=== PATIENT | female | born 1960 | race Caucasian/White ===

== ENCOUNTER 2019-01-28 08:26 | Day surgery (SDC) | payer OTHER ==
[2019-01-27 13:55] VITALS: BMI 31.0
[2019-01-28] MEDS ORDERED: MIDAZOLAM HCL 2 MG/2 ML SINGLE DOSE VIAL ONE (11:44)
[2019-01-28] MEDS ORDERED: LIDOCAINE HCL 1%, 10 MG/ML (20ML VIAL) NR ONE (11:45)
[2019-01-28] MEDS ORDERED: IOHEXOL 180 MG/1 ML ML IJ ONE (11:45)
[2019-01-28] MEDS ORDERED: BETAMET ACET/BETAMET NA PH 30 MG/5 ML VIAL IJ ONE (11:46)
[2019-01-28] MEDS ORDERED: DEXAMETHASONE SOD PHOSPHATE/PF 10 MG/ML SDV ONE (11:48)
[2019-01-28 13:16] VITALS: BP 126/72; PULSE 63; TEMP 98
== END 2019-01-28 13:05 | disposition home or self-care (01) ==
LOC: JASU-SURG 08:26
PROVIDERS: ATTEND Physical Medicine & Rehabilitation
PROC: 3E0R33Z Introduction of Anti-inflammatory into Spinal Canal, Percutaneous Approach (ICD-10-PCS; 2019-01-28)
PROC: B01BYZZ Fluoroscopy of Spinal Cord using Other Contrast (ICD-10-PCS; 2019-01-28)
PROC: 3E0R3BZ Introduction of Anesthetic Agent into Spinal Canal, Percutaneous Approach (ICD-10-PCS; principal; 2019-01-28 11:00)
DX: M54.12 Radiculopathy, cervical region (principal); M54.2 Cervicalgia
CPT/HCPCS: 76000-TC-FY

== ENCOUNTER 2019-04-16 02:58 | Inpatient (IN) | payer OTHER ==
[2019-04-16] MEDS ORDERED: ACETAMINOPHEN 1000 MG/100 ML VIAL (NON FORMULARY) IVPB ONE (03:13)
--- NOTE | 2019-04-16 03:16 | PDOC ---
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 Pt comes with fever, exhaustion, sob and general malaise and appears weak. - Physicial Exam PE: 04/16/19 19:52 Comments: General: Comfortable, no acute distress HEENT: PERRL, EOMI, MMM, voice normal, normal neck ROM Cards: RRR, no murmur appreciated Pulm: Comfortable on room air, dry cough. No obvious wheezing or crackles but breath sounds obscured by persistent vocalizations. Abd: Soft, nontender, nondistended Ext: Atraumatic. No LE edema. ROM intact. WWP Skin: Normal color, no rashes or lesions Neuro: A&Ox3, CN grossly intact, normal speech, motor/sensory grossly intact and symmetric Psych: Mood appropriate to situation - Medical Decision Making 04/16/19 03:58 Pt is influenza negative; CXR is pending UA pending 04/16/19 06:45 Pt with atypical pneumonia; desaturates off of oxygen; 92-94% on RA. Pt becaomes tachycardic to 115 BPM when she ambulates down the ER nieves and back.Pt was treated earlier with zithromax in the ER; I treated with lcinda IVPB , because i thought that she would be strep positive; unclear if the initial dose of zithromax IV ruined the rapid strep test causing a false negative result. Pt complains of sore throat, odynophagia.
[2019-04-16] MEDS ORDERED: ACETAMINOPHEN INJECTION 100 ML IVPB ONE (03:27)
[2019-04-16] MEDS ORDERED: AZITHROMYCIN IVPB 500 MG in DEXTROSE 5%-WATER - 250 ML IVPB ONE ×2 (03:30→06:43)
--- NOTE | 2019-04-16 03:41 | PDOC ---
History of Present Illness - General Chief Complaint: SIRS, Suspected/Possible Stated Complaint: FEVER,COUGH Time Seen by Provider: 04/16/19 03:15 - History of Present Illness Initial Comments: Michelle Ace is a 59yo woman with a PMH of hypothyroid, left breast CA s/p surgery and radiation who presents with one week of worsening cough and difficulty breathing. She reports that her cough started during the middle of last week, about 9 or 10 days ago, and she took several days off work. During the past week, she has been using Musinex and Tylenol for her symptoms. Today, she felt significantly worse and was having difficulty breathing. Her noted that she felt very warm this evening and decided that she needed to come to the hospital. Ms Krueger denies any fevers prior to tonight, change in appetite, nausea/ vomiting, change in bowel habits, known sick contacts, or history of lung disease. She endorses dysuria recently but was given antibiotics by her PMD one month ago. Past History - Past Medical History Allergies/Adverse Reactions: Allergies Allergy/AdvReac Type Severity Reaction Status Date / Time No Known Allergies Allergy Verified 04/16/19 03:10 Home Medications: Ambulatory Orders Levothyroxine [Synthroid -] 50 mcg PO DAILY 01/27/19 Cancer: Yes (breast) Thyroid Disease: Yes - Surgical History Orthopedic Surgery: Yes (left hand,) - Psycho Social/Smoking Cessation Hx Smoking History: Never smoked Have you smoked in the past 12 months: No Information on smoking cessation initiated: No Hx Alcohol Use: No Drug/Substance Use Hx: No Hx Substance Use Treatment: No Review of Systems - Review of Systems Comments:: General: No fevers, no chills, no weight or appetite change, no malaise HEENT: No changes in vision, no changes in hearing, no congestion, no sore throat CV: No chest pain, no palpitations, no LE edema Pulm: See HPI GI: No nausea or vomiting, no change in bowel habits, no melena : No frequency, no urgency, no dysuria Musc: No back pain, no joint swelling, no recent injury Skin: No rash, no lesions, no erythema Endo: No excessive thirst, no heat/cold intolerance Heme: No unusual bruising or bleeding, no swollen glands Neuro: No syncope, no numbness/tingling, no focal weakness Vasc: No claudication Psych: No recent change in mood, no SI or HI *Physical Exam - Vital Signs Last Vital Signs Temp Pulse Resp BP Pulse Ox 101.2 F H 120 H 20 116/85 95 04/16/19 03:12 04/16/19 03:12 04/16/19 03:12 04/16/19 03:12 04/16/19 03:33 - Physical Exam Comments: General: Comfortable, no acute distress HEENT: PERRL, EOMI, MMM, voice normal, normal neck ROM Cards: RRR, no murmur appreciated Pulm: Comfortable on room air, dry cough. No obvious wheezing or crackles but breath sounds obscured by persistent vocalizations. Abd: Soft, nontender, nondistended Ext: Atraumatic. No LE edema. ROM intact. WWP Skin: Normal color, no rashes or lesions Neuro: A&Ox3, CN grossly intact, normal speech, motor/sensory grossly intact and symmetric Psych: Mood appropriate to situation ED Treatment Course - LABORATORY CBC & Chemistry Diagram: 04/16/19 03:30 04/16/19 03:30 - Medications Given in the ED: ED Medications Discontinued Medications Generic Name Dose Route Start Last Admin Trade Name Freq PRN Reason Stop Dose Admin Acetaminophen 1,000 mg 04/16/19 03:13 04/16/19 03:34 Ofirmev Injection - IVPB 04/16/19 03:14 1,000 mg ONCE ONE Administration Medical Decision Making - Medical Decision Making 04/16/19 03:41 Michelle Ace is a 59yo woman with a PMH of hypothyroid, left breast CA s/p surgery and radiation who presents with one week of worsening cough with difficulty breathing and new onset of fever today. - Worsening cough, SOB and new onset of fever after 9-10 days of respiratory symptoms. Concerning for possible pneumonia or bacterial respiratory infection given sudden worsening - Sepsis workup as pt is febrile, tachycardic, and mildly hypoxic to 94% on RA - Flu swab - Acetaminophen, IVF, azithromycin 04/16/19 05:17 - Labs notable for slight leukocytosis to 12, lactate 2.1 - UA with blood, no s/s of infection - EKG w/ sinus tachycardia, HR 108, normal axis, normal intervals, no ST elevation - CXR to be completed 10/26/19 05:43 - CXR without acute abnormalities appreciated - Will recheck vitals, ambulate and check sats with ambulation 04/16/19 06:43 - Strep checked per Dr Callejas due to pt now endorsing sore throat. Negative - Sats 97% on RA, drop to low 90's when ambulating. HR up to 115 when walking - Will send microblog for admission given hypoxia and persistent tachycardia - Duoneb and additional IVF 04/16/19 07:01 - Sign out given to Dr Arndt for the remainder of her ED care Discussed with Dr Júnior Calixto PGY2 Discharge - Discharge Information Problems reviewed: Yes Clinical Impression/Diagnosis: Hypoxemia, Cough Sepsis Qualifiers: Sepsis type: sepsis due to unspecified organism Sepsis acute organ dysfunction status: unspecified Qualified Code(s): A41.9 - Sepsis, unspecified organism - Admission Yes - Follow up/Referral Referrals: Robbie Brooks MD [Primary Care Provider] - - Patient Discharge Instructions - Post Discharge Activity
[2019-04-16] MEDS ORDERED: AZITHROMYCIN IVPB 500 MG/250 ML BAG IVPB ONE (03:44)
[2019-04-16 03:46] LABS: BASO % 0.3 % (0-2.0); EOS % 1.6 % (0-4.5); HEMOGLOBIN 14.3 GM/dL (10.7-15.3); LYMPH % 11.1 % (8-40); MCH 28.8 pg (25.7-33.7); MCHC 33.2 g/dl (32.0-36.0); MEAN CELL VOLUME 86.7 fl (80-96); MEAN PLT VOLUME 7.8 fl (7.5-11.1); MONO % 5.3 % (3.8-10.2); NEUT % 81.7 % (42.8-82.8); PLATELET COUNT 337 K/MM3 (134-434); RBC 4.95 M/mm3 (3.60-5.2); RDW 13.2 % (11.6-15.6); WHITE BLOOD COUNT 12.6 K/mm3 (4.0-10.0)
[2019-04-16] MEDS ORDERED: SODIUM CHLORIDE 0.9% 500 ML INFUS.BAG IV ONE ×2 (03:59→06:43)
[2019-04-16 04:01] LABS: INR 1.07 (0.83-1.09); PROTHROMBIN TIME (PATIENT) 12.6 SEC (9.7-13.0)
[2019-04-16 04:29] LABS: ALBUMIN 4.2 g/dl (3.4-5.0); ALK PHOS 102 U/L (45-117); ANION GAP 9 MMOL/L (8-16); BILIRUBIN,TOTAL 0.5 mg/dL (0.2-1); BLOOD UREA NITROGEN 13.4 mg/dL (7-18); CALCIUM 9.3 mg/dL (8.5-10.1); CHLORIDE 106 mmol/L (98-107); CO2 25 mmol/L (21-32); CREATININE 0.8 mg/dL (0.55-1.3); GLUCOSE,RANDOM 118 mg/dL (74-106); POTASSIUM 3.9 mmol/L (3.5-5.1); SGOT/AST 16 U/L (15-37); SGPT/ALT 12 U/L (13-61); SODIUM 139 mmol/L (136-145); TOT PROT 7.6 g/dl (6.4-8.2)
[2019-04-16 05:09] LABS: EPI CELLS 0.2 /HPF (0-5/HPF); HYALINE CASTS 0 /lpf (0-8); PH,URINE 5.5 (5.0-8.0); URINE APPEARANCE CLEAR; URINE BILIRUBIN NEGATIVE (NEGATIVE); URINE COLOR YELLOW; URINE GLUCOSE (UA) NEGATIVE (NEGATIVE); URINE KETONE NEGATIVE (NEGATIVE); URINE LEUK ESTERASE NEGATIVE (NEGATIVE); URINE NITRITE NEGATIVE (NEGATIVE); URINE PROTEIN NEGATIVE (NEGATIVE); URINE RBC 15 /hpf (0-4); URINE UROBILINOGEN 0.2 mg/dL (0.2-1.0); URINE WBC 0 /hpf (0-5)
[2019-04-16] MEDS ORDERED: CLINDAMYCIN 600MG PREMIX IVPB 600 MG/50 ML BAG IVPB ONE ×2 (06:09→06:11)
[2019-04-16] MEDS ORDERED: ALBUTEROL SO4 2.5/IPRATROPIUM 0.5 INH SOL 3 ML VIAL.NEB. NEB ONE ×2 (06:42→06:44)
--- NOTE | 2019-04-16 07:47 | PDOC ---
*Physical Exam - Vital Signs Last Vital Signs Temp Pulse Resp BP Pulse Ox 98.4 F 90 20 108/62 96 04/16/19 05:30 04/16/19 05:11 04/16/19 05:11 04/16/19 05:42 04/16/19 06:10 ED Treatment Course - LABORATORY CBC & Chemistry Diagram: 04/16/19 03:30 04/16/19 03:30 - ADDITIONAL ORDERS Additional order review: Laboratory Results 04/16/19 04/16/19 04/16/19 05:35 04:30 03:30 PT with INR 12.60 INR 1.07 PTT (Actin FS) Sodium Potassium Chloride Carbon Dioxide Anion Gap BUN Creatinine Est GFR (CKD-EPI)AfAm Est GFR (CKD-EPI)NonAf Random Glucose Lactic Acid 1.8 Calcium Total Bilirubin AST ALT Alkaline Phosphatase Troponin I Total Protein Albumin Urine Color Yellow Urine Appearance Clear Urine pH 5.5 Ur Specific [place] 1.012 Urine Protein Negative Urine Glucose (UA) Negative Urine Ketones Negative Urine Blood 2+ H Urine Nitrite Negative Urine Bilirubin Negative Urine Urobilinogen 0.2 Ur Leukocyte Esterase Negative Urine WBC (Auto) 0 Urine RBC (Auto) 15 Urine Casts (Auto) 0 U Epithel Cells (Auto) 0.2 Urine Bacteria (Auto) 1.0 04/16/19 04/16/19 04/16/19 03:30 03:30 03:30 PT with INR INR PTT (Actin FS) 36.5 Sodium 139 Potassium 3.9 Chloride 106 Carbon Dioxide 25 Anion Gap 9 BUN 13.4 Creatinine 0.8 Est GFR (CKD-EPI)AfAm 92.87 Est GFR (CKD-EPI)NonAf 80.13 Random Glucose 118 H Lactic Acid 2.1 H Calcium 9.3 Total Bilirubin 0.5 AST 16 ALT 12 L Alkaline Phosphatase 102 Troponin I < 0.02 Total Protein 7.6 Albumin 4.2 Urine Color Urine Appearance Urine pH Ur Specific [place] Urine Protein Urine Glucose (UA) Urine Ketones Urine Blood Urine Nitrite Urine Bilirubin Urine Urobilinogen Ur Leukocyte Esterase Urine WBC (Auto) Urine RBC (Auto) Urine Casts (Auto) U Epithel Cells (Auto) Urine Bacteria (Auto) 04/16/19 03:30 PT with INR INR PTT (Actin FS) Sodium Potassium Chloride Carbon Dioxide Anion Gap BUN Creatinine Est GFR (CKD-EPI)AfAm Est GFR (CKD-EPI)NonAf Random Glucose Lactic Acid Calcium Total Bilirubin AST ALT Alkaline Phosphatase Troponin I Cancelled Total Protein Albumin Urine Color Urine Appearance Urine pH Ur Specific [place] Urine Protein Urine Glucose (UA) Urine Ketones Urine Blood Urine Nitrite Urine Bilirubin Urine Urobilinogen Ur Leukocyte Esterase Urine WBC (Auto) Urine RBC (Auto) Urine Casts (Auto) U Epithel Cells (Auto) Urine Bacteria (Auto) 04/16/19 03:30 RBC 4.95 MCV 86.7 MCHC 33.2 RDW 13.2 MPV 7.8 Neutrophils % 81.7 Lymphocytes % 11.1 Monocytes % 5.3 Eosinophils % 1.6 Basophils % 0.3 - Medications Given in the ED: ED Medications Discontinued Medications Generic Name Dose Route Start Last Admin Trade Name Freq PRN Reason Stop Dose Admin Acetaminophen 1,000 mg 04/16/19 03:13 04/16/19 03:34 Ofirmev Injection - IVPB 04/16/19 03:14 1,000 mg ONCE ONE Administration Albuterol/Ipratropium 1 amp 04/16/19 06:42 04/16/19 06:49 Duoneb - NEB 04/16/19 06:43 1 amp ONCE ONE Administration Azithromycin 500 mg/ Dextrose 250 mls @ 250 mls/hr 04/16/19 03:30 04/16/19 03 :50 IVPB 04/16/19 04:29 250 mls/hr ONCE ONE Administration Clindamycin Phosphate 600 mg in 50 mls @ 100 mls/hr 04/16/19 06:09 04/16/19 06:14 Cleocin 600 Mg Premix Ivpb - IVPB 04/16/19 06:38 100 mls/hr ONCE ONE Administration Azithromycin 500 mg/ Dextrose 250 mls @ 250 mls/hr 04/16/19 06:43 04/16/19 06 :49 IVPB 04/16/19 07:42 Not Given ONCE ONE Sodium Chloride 1,000 ml 04/16/19 03:59 04/16/19 04:04 Normal Saline - IV 04/16/19 04:00 1,000 ml ONCE ONE Administration Sodium Chloride 1,000 ml 04/16/19 06:43 04/16/19 06:50 Normal Saline - IV 04/16/19 06:44 1,000 ml ONCE ONE Administration Medical Decision Making - Medical Decision Making 04/16/19 07:46 Patient signed out by overnight team Pending admission for sepsis criteria On assessment the patient has crackles at the bases Patient signed out to admitting team resident Dr. Chance Discharge - Discharge Information Problems reviewed: Yes Clinical Impression/Diagnosis: Hypoxemia, Cough Sepsis Qualifiers: Sepsis type: sepsis due to unspecified organism Sepsis acute organ dysfunction status: unspecified Qualified Code(s): A41.9 - Sepsis, unspecified organism - Follow up/Referral Referrals: Robbie Brooks MD [Primary Care Provider] - - Patient Discharge Instructions - Post Discharge Activity
[2019-04-16 09:10] LABS: N-TERMINAL BNP 27.5 pg/ml (5-125)
[2019-04-16] MEDS ORDERED: ALBUTEROL SO4 0.083% IH SOL 2.5 MG/3 ML VIAL.NEB. NEB PRN (09:23)
[2019-04-16] MEDS ORDERED: SODIUM CHLORIDE 1,000 ML IV SCH (09:30)
--- NOTE | 2019-04-16 11:30 | HP ---
CHIEF COMPLAINT:fever and cough PCP:Dr. Robbie Brooks HISTORY OF PRESENT ILLNESS: Patient is a 59 year old female with past medical history of hypothyroidism and left breast CA s/p surgery and radiation, presented due to worsening nasal congestion, cough with difficulty breathing that started 10 days ago. Patient reported initially having flu-like symptoms including headache, generalized malaise, nasal congestion, sore throat and nonproductive cough. Patient would take Nyquil which provided temporary relief. 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 Patient came to the ED due to worsening symptoms, with difficulty breathing. At the ED, she was noted to be febrile at 101.2F, tachycardic with leukocytosis, and saturating at the low 90s. She was given IV antibiotics and duonebs which provided symptomatic relief. This morning, patient reports feeling better, but still has nasal congestion, sore throat and cough. Patient denies chest pain, palpitations, abdominal pain, diarrhea, urinary symptoms. ER course was notable for: (1)Clindamycin and Azithromycin given (2)Influenza negative, Strep negative (3) Recent Travel:denies PAST MEDICAL HISTORY: Hypothyroidism Left breast CA s/p surgery and radiation PAST SURGICAL HISTORY: Lumpectomy, left breast Social History: Smoking: denies Alcohol:denies Drugs: denies Allergies No Known Allergies Allergy (Verified 04/16/19 03:10) HOME MEDICATIONS: Home Medications Medication Instructions Recorded Levothyroxine [Synthroid -] 50 mcg PO DAILY 01/27/19 Acetaminophen [Tylenol] 650 mg PO DAILY PRN 04/16/19 Ascorbic Acid [Vitamin C] 1,000 mg PO DAILY 04/16/19 Cholecalciferol (Vitamin D3) 50,000 unit PO DAILY 04/16/19 [D3-50] Cyclobenzaprine HCl [Flexeril -] 5 mg PO HS 04/16/19 Gabapentin [Neurontin] 750 mg PO PRN 04/16/19 Omeprazole 40 mg PO DAILY 04/16/19 REVIEW OF SYSTEMS CONSTITUTIONAL: Absent: fever, chills, diaphoresis, generalized weakness, malaise, loss of appetite, weight change HEENT: Absent: rhinorrhea, nasal congestion, throat pain, throat swelling, difficulty swallowing, mouth swelling, ear pain, eye pain, visual changes CARDIOVASCULAR: Absent: chest pain, syncope, palpitations, irregular heart rate, lightheadedness , peripheral edema RESPIRATORY: Absent: cough, shortness of breath, dyspnea with exertion, orthopnea, wheezing, stridor, hemoptysis GASTROINTESTINAL: Absent: abdominal pain, abdominal distension, nausea, vomiting, diarrhea, constipation, melena, hematochezia GENITOURINARY: Absent: dysuria, frequency, urgency, hesitancy, hematuria, flank pain, genital pain MUSCULOSKELETAL: Absent: myalgia, arthralgia, joint swelling, back pain, neck pain SKIN: Absent: rash, itching, pallor HEMATOLOGIC/IMMUNOLOGIC: Absent: easy bleeding, easy bruising, lymphadenopathy, frequent infections ENDOCRINE: Absent: unexplained weight gain, unexplained weight loss, heat intolerance, cold intolerance NEUROLOGIC: Absent: headache, focal weakness or paresthesias, dizziness, unsteady gait, seizure, mental status changes, bladder or bowel incontinence PSYCHIATRIC: Absent: anxiety, depression, suicidal or homicidal ideation, hallucinations. PHYSICAL EXAMINATION Vital Signs - 24 hr 04/16/19 04/16/19 04/16/19 03:12 03:33 04:09 Temperature 101.2 F H Pulse Rate 120 H Pulse Rate [ 100 H Left Radial] Respiratory 20 Rate Blood Pressure 116/85 Blood Pressure [Left Arm] O2 Sat by Pulse 94 L 95 99 Oximetry (%) 04/16/19 04/16/19 04/16/19 05:11 05:30 05:42 Temperature 98.4 F Pulse Rate Pulse Rate [ 90 Left Radial] Respiratory 20 Rate Blood Pressure Blood Pressure 108/62 [Left Arm] O2 Sat by Pulse 99 Oximetry (%) 04/16/19 04/16/19 04/16/19 06:10 07:20 08:42 Temperature 97.8 F 98.2 F Pulse Rate Pulse Rate [ 94 H 91 H Left Radial] Respiratory 16 18 Rate Blood Pressure Blood Pressure 97/51 L 105/71 [Left Arm] O2 Sat by Pulse 96 100 100 Oximetry (%) GENERAL: Awake, alert, and fully oriented, saturating 99% on 2L NC HEAD: Normal with no signs of trauma. EYES:PERRLA, EOMI, sclera anicteric, conjunctiva clear. EARS, NOSE, THROAT: Ears normal, nares patent, oropharynx clear without exudates. Dry mucous membranes. NECK: Normal range of motion, supple. LUNGS: +Right basilar crackles HEART: Regular rate and rhythm, normal S1 and S2. ABDOMEN: Soft, nontender, not distended, normoactive bowel sounds. MUSCULOSKELETAL: Normal range of motion at all joints. UPPER EXTREMITIES: 2+ pulses, warm, well-perfused. LOWER EXTREMITIES: 2+ pulses, warm, well-perfused. NEUROLOGICAL: Cranial nerves II-XII intact. Normal speech. Normal gait. PSYCHIATRIC: Cooperative. Good eye contact. Appropriate mood and affect. SKIN: Warm, dry, normal turgor, no rashes or lesions noted. Laboratory Results - last 24 hr 04/16/19 04/16/19 04/16/19 03:10 03:30 03:30 WBC RBC Hgb Hct MCV MCH MCHC RDW Plt Count MPV Absolute Neuts (auto) Neutrophils % Lymphocytes % Monocytes % Eosinophils % Basophils % Nucleated RBC % PT with INR INR PTT (Actin FS) 36.5 Sodium Potassium Chloride Carbon Dioxide Anion Gap BUN Creatinine Est GFR (CKD-EPI)AfAm Est GFR (CKD-EPI)NonAf Random Glucose Lactic Acid Calcium Total Bilirubin AST ALT Alkaline Phosphatase Troponin I Cancelled B-Natriuretic Peptide Total Protein Albumin Urine Color Urine Appearance Urine pH Ur Specific [place] Urine Protein Urine Glucose (UA) Urine Ketones Urine Blood Urine Nitrite Urine Bilirubin Urine Urobilinogen Ur Leukocyte Esterase Urine WBC (Auto) Urine RBC (Auto) Urine Casts (Auto) U Epithel Cells (Auto) Urine Bacteria (Auto) Influenza A (Rapid) Negative Influenza B (Rapid) Negative Group A Strep Rapid 04/16/19 04/16/19 04/16/19 03:30 03:30 03:30 WBC 12.6 H RBC 4.95 Hgb 14.3 Hct 43.0 MCV 86.7 MCH 28.8 MCHC 33.2 RDW 13.2 Plt Count 337 MPV 7.8 Absolute Neuts (auto) 10.3 H Neutrophils % 81.7 Lymphocytes % 11.1 Monocytes % 5.3 Eosinophils % 1.6 Basophils % 0.3 Nucleated RBC % 0 PT with INR INR PTT (Actin FS) Sodium 139 Potassium 3.9 Chloride 106 Carbon Dioxide 25 Anion Gap 9 BUN 13.4 Creatinine 0.8 Est GFR (CKD-EPI)AfAm 92.87 Est GFR (CKD-EPI)NonAf 80.13 Random Glucose 118 H Lactic Acid 2.1 H Calcium 9.3 Total Bilirubin 0.5 AST 16 ALT 12 L Alkaline Phosphatase 102 Troponin I < 0.02 B-Natriuretic Peptide 27.5 Total Protein 7.6 Albumin 4.2 Urine Color Urine Appearance Urine pH Ur Specific [place] Urine Protein Urine Glucose (UA) Urine Ketones Urine Blood Urine Nitrite Urine Bilirubin Urine Urobilinogen Ur Leukocyte Esterase Urine WBC (Auto) Urine RBC (Auto) Urine Casts (Auto) U Epithel Cells (Auto) Urine Bacteria (Auto) Influenza A (Rapid) Influenza B (Rapid) Group A Strep Rapid 04/16/19 04/16/19 04/16/19 03:30 04:30 05:35 WBC RBC Hgb Hct MCV MCH MCHC RDW Plt Count MPV Absolute Neuts (auto) Neutrophils % Lymphocytes % Monocytes % Eosinophils % Basophils % Nucleated RBC % PT with INR 12.60 INR 1.07 PTT (Actin FS) Sodium Potassium Chloride Carbon Dioxide Anion Gap BUN Creatinine Est GFR (CKD-EPI)AfAm Est GFR (CKD-EPI)NonAf Random Glucose Lactic Acid 1.8 Calcium Total Bilirubin AST ALT Alkaline Phosphatase Troponin I B-Natriuretic Peptide Total Protein Albumin Urine Color Yellow Urine Appearance Clear Urine pH 5.5 Ur Specific [place] 1.012 Urine Protein Negative Urine Glucose (UA) Negative Urine Ketones Negative Urine Blood 2+ H Urine Nitrite Negative Urine Bilirubin Negative Urine Urobilinogen 0.2 Ur Leukocyte Esterase Negative Urine WBC (Auto) 0 Urine RBC (Auto) 15 Urine Casts (Auto) 0 U Epithel Cells (Auto) 0.2 Urine Bacteria (Auto) 1.0 Influenza A (Rapid) Influenza B (Rapid) Group A Strep Rapid 04/16/19 06:10 WBC RBC Hgb Hct MCV MCH MCHC RDW Plt Count MPV Absolute Neuts (auto) Neutrophils % Lymphocytes % Monocytes % Eosinophils % Basophils % Nucleated RBC % PT with INR INR PTT (Actin FS) Sodium Potassium Chloride Carbon Dioxide Anion Gap BUN Creatinine Est GFR (CKD-EPI)AfAm Est GFR (CKD-EPI)NonAf Random Glucose Lactic Acid Calcium Total Bilirubin AST ALT Alkaline Phosphatase Troponin I B-Natriuretic Peptide Total Protein Albumin Urine Color Urine Appearance Urine pH Ur Specific [place] Urine Protein Urine Glucose (UA) Urine Ketones Urine Blood Urine Nitrite Urine Bilirubin Urine Urobilinogen Ur Leukocyte Esterase Urine WBC (Auto) Urine RBC (Auto) Urine Casts (Auto) U Epithel Cells (Auto) Urine Bacteria (Auto) Influenza A (Rapid) Influenza B (Rapid) Group A Strep Rapid Negative ASSESSMENT/PLAN: Patient is a 59 year old female with past medical history of hypothyroidism and left breast CA s/p surgery and radiation, presented due to worsening nasal congestion, cough with difficulty breathing that started 10 days ago. #Sepsis likely 2/2 Acute Bronchitis -Blood culture, throat culture pending -UA negative -Rapid influenza and strep negative -CXR no acute pathology -Azithromycin and Clindamycin given at the ED -Will start Levaquin 500mg IV daily -albuterol Neb q4h PRN #Hypothyroidism -Continue home Synthroid 50mcg daily #FEN -Not on any standing fluids -Electrolytes wnl, routine bmp monitoring -Regular diet #Prophylaxis -Lovenox 40mg sq daily #Disposition -full code -admit to med surg Visit type - Emergency Visit Emergency Visit: Yes ED Registration Date: 04/16/19 Care time: The patient presented to the Emergency Department on the above date and was hospitalized for further evaluation of their emergent condition. - New Patient This patient is new to me today: Yes Date on this admission: 04/16/19 - Critical Care Critical Care patient: No ATTENDING PHYSICIAN STATEMENT I saw and evaluated the patient. I reviewed the resident's note and discussed the case with the resident. I agree with the resident's findings and plan as documented. SUBJECTIVE: OBJECTIVE: ASSESSMENT AND PLAN:
--- NOTE | 2019-04-16 14:46 | EKG ---
Test Reason : Blood Pressure : / mmHG Vent. Rate : 108 BPM Atrial Rate : 108 BPM P-R Int : 160 ms QRS Dur : 076 ms QT Int : 320 ms P-R-T Axes : 050 062 035 degrees QTc Int : 428 ms POOR DATA QUALITY, INTERPRETATION MAY BE ADVERSELY AFFECTED SINUS TACHYCARDIA NONSPECIFIC T WAVE ABNORMALITY ABNORMAL ECG NO PREVIOUS ECGS AVAILABLE Confirmed by ALLISON CARTWRIGHT MD ([id number]) on 04/16/2019 2:45:51 PM Referred By: Confirmed By:ALLISON CARTWRIGHT MD
[2019-04-16] MEDS: ENOXAPARIN NA (PORCINE) 40 MG/0.4 ML DISP.SYRIN SQ SCH (16:09)
[2019-04-16] MEDS: ACETAMINOPHEN 325 MG TABLET (FP) PO PRN (16:10)
--- NOTE | 2019-04-16 16:11 | PN ---
Teaching Attending Note Name of Resident: Stefanie Whiteside ATTENDING PHYSICIAN STATEMENT I saw and evaluated the patient. I reviewed the resident's note and discussed the case with the resident. I agree with the resident's findings and plan as documented. SUBJECTIVE: Complains of sore throat, odynophagia, cough, fever. No sputum. No rash. No nausea/vomiting. OBJECTIVE:T max 101.2. Hemodynamically Stable. Last Vital Signs Temp Pulse Resp BP Pulse Ox 99.5 F 98 H 18 115/85 98 04/16/19 14:00 04/16/19 14:00 04/16/19 14:00 04/16/19 14:00 04/16/19 10:49 HEENT - Atraumatic, Normocephalic. Mild pharyngeal erythema, no exudate Heart - S1, S2, RRR Lungs - few basal crackles. Abdomen - Soft, non-tender. Bowel Sounds normal. Extremities - no edema, no calf tenderness Neuro- AAO x 3. Tone/Power normal all extremities. Laboratory Results - last 24 hr 04/16/19 04/16/19 04/16/19 03:10 03:30 03:30 WBC RBC Hgb Hct MCV MCH MCHC RDW Plt Count MPV Absolute Neuts (auto) Neutrophils % Lymphocytes % Monocytes % Eosinophils % Basophils % Nucleated RBC % PT with INR INR PTT (Actin FS) 36.5 Sodium Potassium Chloride Carbon Dioxide Anion Gap BUN Creatinine Est GFR (CKD-EPI)AfAm Est GFR (CKD-EPI)NonAf Random Glucose Lactic Acid Calcium Total Bilirubin AST ALT Alkaline Phosphatase Troponin I Cancelled B-Natriuretic Peptide Total Protein Albumin Urine Color Urine Appearance Urine pH Ur Specific [place] Urine Protein Urine Glucose (UA) Urine Ketones Urine Blood Urine Nitrite Urine Bilirubin Urine Urobilinogen Ur Leukocyte Esterase Urine WBC (Auto) Urine RBC (Auto) Urine Casts (Auto) U Epithel Cells (Auto) Urine Bacteria (Auto) Influenza A (Rapid) Negative Influenza B (Rapid) Negative Group A Strep Rapid 04/16/19 04/16/19 04/16/19 03:30 03:30 03:30 WBC 12.6 H RBC 4.95 Hgb 14.3 Hct 43.0 MCV 86.7 MCH 28.8 MCHC 33.2 RDW 13.2 Plt Count 337 MPV 7.8 Absolute Neuts (auto) 10.3 H Neutrophils % 81.7 Lymphocytes % 11.1 Monocytes % 5.3 Eosinophils % 1.6 Basophils % 0.3 Nucleated RBC % 0 PT with INR INR PTT (Actin FS) Sodium 139 Potassium 3.9 Chloride 106 Carbon Dioxide 25 Anion Gap 9 BUN 13.4 Creatinine 0.8 Est GFR (CKD-EPI)AfAm 92.87 Est GFR (CKD-EPI)NonAf 80.13 Random Glucose 118 H Lactic Acid 2.1 H Calcium 9.3 Total Bilirubin 0.5 AST 16 ALT 12 L Alkaline Phosphatase 102 Troponin I < 0.02 B-Natriuretic Peptide 27.5 Total Protein 7.6 Albumin 4.2 Urine Color Urine Appearance Urine pH Ur Specific [place] Urine Protein Urine Glucose (UA) Urine Ketones Urine Blood Urine Nitrite Urine Bilirubin Urine Urobilinogen Ur Leukocyte Esterase Urine WBC (Auto) Urine RBC (Auto) Urine Casts (Auto) U Epithel Cells (Auto) Urine Bacteria (Auto) Influenza A (Rapid) Influenza B (Rapid) Group A Strep Rapid 04/16/19 04/16/19 04/16/19 03:30 04:30 05:35 WBC RBC Hgb Hct MCV MCH MCHC RDW Plt Count MPV Absolute Neuts (auto) Neutrophils % Lymphocytes % Monocytes % Eosinophils % Basophils % Nucleated RBC % PT with INR 12.60 INR 1.07 PTT (Actin FS) Sodium Potassium Chloride Carbon Dioxide Anion Gap BUN Creatinine Est GFR (CKD-EPI)AfAm Est GFR (CKD-EPI)NonAf Random Glucose Lactic Acid 1.8 Calcium Total Bilirubin AST ALT Alkaline Phosphatase Troponin I B-Natriuretic Peptide Total Protein Albumin Urine Color Yellow Urine Appearance Clear Urine pH 5.5 Ur Specific [place] 1.012 Urine Protein Negative Urine Glucose (UA) Negative Urine Ketones Negative Urine Blood 2+ H Urine Nitrite Negative Urine Bilirubin Negative Urine Urobilinogen 0.2 Ur Leukocyte Esterase Negative Urine WBC (Auto) 0 Urine RBC (Auto) 15 Urine Casts (Auto) 0 U Epithel Cells (Auto) 0.2 Urine Bacteria (Auto) 1.0 Influenza A (Rapid) Influenza B (Rapid) Group A Strep Rapid 04/16/19 06:10 WBC RBC Hgb Hct MCV MCH MCHC RDW Plt Count MPV Absolute Neuts (auto) Neutrophils % Lymphocytes % Monocytes % Eosinophils % Basophils % Nucleated RBC % PT with INR INR PTT (Actin FS) Sodium Potassium Chloride Carbon Dioxide Anion Gap BUN Creatinine Est GFR (CKD-EPI)AfAm Est GFR (CKD-EPI)NonAf Random Glucose Lactic Acid Calcium Total Bilirubin AST ALT Alkaline Phosphatase Troponin I B-Natriuretic Peptide Total Protein Albumin Urine Color Urine Appearance Urine pH Ur Specific [place] Urine Protein Urine Glucose (UA) Urine Ketones Urine Blood Urine Nitrite Urine Bilirubin Urine Urobilinogen Ur Leukocyte Esterase Urine WBC (Auto) Urine RBC (Auto) Urine Casts (Auto) U Epithel Cells (Auto) Urine Bacteria (Auto) Influenza A (Rapid) Influenza B (Rapid) Group A Strep Rapid Negative Current Medications Generic Name Dose Route Start Last Admin Trade Name Freq PRN Reason Stop Dose Admin Acetaminophen 650 mg 04/16/19 09:23 Tylenol - PO Q6H PRN FEVER Albuterol Sulfate 1 amp 04/16/19 09:23 Ventolin 0.083% Nebulizer Soln - NEB Q4H PRN SHORT OF BREATH/WHEEZING Cyclobenzaprine HCl 5 mg 04/16/19 22:00 Cyclobenzaprine Hcl PO HS [facility] Enoxaparin Sodium 40 mg 04/16/19 10:00 Lovenox - SQ DAILY [facility] Levofloxacin 750 mg in 150 mls @ 100 mls/hr 04/17/19 06:00 Levaquin 750 Mg Premixed Ivpb - IVPB DAILY@0600 [facility] Protocol Levothyroxine Sodium 50 mcg 04/17/19 07:00 Synthroid - PO DAILY@0700 [facility] Pantoprazole Sodium 40 mg 04/17/19 10:00 Protonix - PO DAILY [facility] Home Medications Medication Instructions Recorded Levothyroxine [Synthroid -] 50 mcg PO DAILY 01/27/19 Acetaminophen [Tylenol] 650 mg PO DAILY PRN 04/16/19 Ascorbic Acid [Vitamin C] 1,000 mg PO DAILY 04/16/19 Cholecalciferol (Vitamin D3) 50,000 unit PO DAILY 04/16/19 [D3-50] Cyclobenzaprine HCl [Flexeril -] 5 mg PO HS 04/16/19 Gabapentin [Neurontin] 750 mg PO PRN 04/16/19 Omeprazole 40 mg PO DAILY 04/16/19 ASSESSMENT AND PLAN: 59 year old female with history of GERD, Hypothyroidism, Left Breast Ca s/p Szx/ RTx, presents with 10 day history of worsening nasal congestion, cough, SOB that is now associated with fever on presentation to ED with T 101.2. No CP/ sputum/hemoptysis. 1. Sepsis secondary to Acute Bronchitis +/- sinusitis Flu neg, Strep neg Blood cx and throat Cx pending. CXR - no acute consolidation Azithromycin and Clindamycin given in ED - will continue with Levofloxacin IV daily. Albuterol PRN. Nasonex and Mucinex for symptomatic relief 2. Hypothyroidism - Continue Synthroid. 3. GERD - continue PPI. DVT Px - Lovenox SQ
[2019-04-16] MEDS: FLUTICASONE PROP 0.05% 16 GM NASAL SPRAY NS SCH ×2 (18:44→22:08)
[2019-04-16] MEDS ORDERED: PT OWN MED DRAWER 7, Y5N ONE (21:16)
[2019-04-16] MEDS ORDERED: CYCLOBENZAPRINE HCL 5 MG TABLET PO SCH (22:00)
[2019-04-16] MEDS: guaiFENesin/D-METHORPHAN TAB.ER.12H PO SCH (22:09)
[2019-04-17] MEDS: ACETAMINOPHEN 325 MG TABLET (FP) PO PRN (06:21)
[2019-04-17] MEDS ORDERED: LEVOTHYROXINE NA 50 MCG TABLET (FP) PO SCH (07:00)
[2019-04-17] MEDS ORDERED: PT OWN MED DRAWER 7, Y5N ONE (07:40)
[2019-04-17 08:00] LABS: ALBUMIN 3.5 g/dl (3.4-5.0); BILIRUBIN,TOTAL 0.5 mg/dL (0.2-1); BLOOD UREA NITROGEN 7.8 mg/dL (7-18); CALCIUM 8.4 mg/dL (8.5-10.1); CREATININE 0.6 mg/dL (0.55-1.3); MAGNESIUM 2.3 mg/dL (1.8-2.4); PHOSPHOROUS 2.9 mg/dL (2.5-4.9); POTASSIUM 3.8 mmol/L (3.5-5.1); TOT PROT 6.4 g/dl (6.4-8.2)
[2019-04-17 08:10] LABS: BASO % 0.5 % (0-2.0); EOS % 2.7 % (0-4.5); HEMOGLOBIN 12.5 GM/dL (10.7-15.3); MCH 29.4 pg (25.7-33.7); MCHC 33.7 g/dl (32.0-36.0); MEAN CELL VOLUME 87.1 fl (80-96); MEAN PLT VOLUME 7.8 fl (7.5-11.1); MONO % 7.5 % (3.8-10.2); NEUT % 66.3 % (42.8-82.8); PLATELET COUNT 293 K/MM3 (134-434); RBC 4.25 M/mm3 (3.60-5.2); RDW 13.2 % (11.6-15.6); WHITE BLOOD COUNT 7.7 K/mm3 (4.0-10.0)
[2019-04-17 08:32] LABS: VENOUS PC02 42.1 mmHg (38-52); VENOUS PH 7.42 (7.31-7.41)
[2019-04-17] MEDS ORDERED: PANTOPRAZOLE 40 MG TABLET (FP) PO SCH (10:00)
[2019-04-17] MEDS: ENOXAPARIN NA (PORCINE) 40 MG/0.4 ML DISP.SYRIN SQ SCH (10:58)
[2019-04-17] MEDS: guaiFENesin/D-METHORPHAN TAB.ER.12H PO SCH (10:59)
[2019-04-17] MEDS: FLUTICASONE PROP 0.05% 16 GM NASAL SPRAY NS SCH (11:01)
--- NOTE | 2019-04-17 12:06 | PN ---
Progress Note (short form) - Note Progress Note: SUBJECTIVE: Improvement in sore throat, odynophagia, and cough. Fever resolved. No sputum. No rash. No nausea/vomiting. OBJECTIVE: Afebrile. Hemodynamically Stable. Last Vital Signs Temp Pulse Resp BP Pulse Ox 98.6 F 82 18 108/66 97 04/17/19 08:05 04/17/19 08:05 04/17/19 08:05 04/17/19 08:05 04/16/19 21:00 HEENT - Atraumatic, Normocephalic. Pharyngeal erythema improved, no exudate Heart - S1, S2, RRR Lungs - clear to auscultation Abdomen - Soft, non-tender. Bowel Sounds normal. Extremities - no edema, no calf tenderness Neuro- AAO x 3. Tone/Power normal all extremities. Laboratory Results - last 24 hr 04/17/19 04/17/19 04/17/19 07:05 07:05 08:09 WBC 7.7 RBC 4.25 Hgb 12.5 Hct 37.0 MCV 87.1 MCH 29.4 MCHC 33.7 RDW 13.2 Plt Count 293 MPV 7.8 Absolute Neuts (auto) 5.1 Neutrophils % 66.3 Lymphocytes % 23.0 D Monocytes % 7.5 Eosinophils % 2.7 Basophils % 0.5 Nucleated RBC % 0 VBG pH 7.42 H POC VBG pCO2 42.1 POC VBG pO2 105 H VBG HCO3 26.8 VBG O2 Sat (Ofelia) 98.1 H VBG Base Excess 2.5 H Sodium 139 Potassium 3.8 Chloride 106 Carbon Dioxide 27 Anion Gap 6 L BUN 7.8 Creatinine 0.6 Est GFR (CKD-EPI)AfAm 114.82 Est GFR (CKD-EPI)NonAf 99.07 Random Glucose 117 H Calcium 8.4 L Phosphorus 2.9 Magnesium 2.3 Total Bilirubin 0.5 AST 14 L ALT 10 L Alkaline Phosphatase 86 Total Protein 6.4 Albumin 3.5 TSH 1.01 Current Medications Generic Name Dose Route Start Last Admin Trade Name Freq PRN Reason Stop Dose Admin Acetaminophen 650 mg 04/16/19 09:23 04/17/19 06:21 Tylenol - PO 650 mg Q6H PRN Administration FEVER Albuterol Sulfate 1 amp 04/16/19 09:23 Ventolin 0.083% Nebulizer Soln - NEB Q4H PRN SHORT OF BREATH/WHEEZING Cyclobenzaprine HCl 5 mg 04/16/19 22:00 04/16/19 22:08 Cyclobenzaprine Hcl PO 5 mg HS [facility] Administration Enoxaparin Sodium 40 mg 04/16/19 10:00 04/17/19 10:58 Lovenox - SQ 40 mg DAILY [facility] Administration Fluticasone Propionate 1 spray 04/16/19 16:11 04/17/19 11:01 Flonase - NS 1 spray BID [facility] Administration Guaifenesin 1 tablet 04/16/19 22:00 04/17/19 10:59 Mucinex Dm - PO 1 tablet BID [facility] Administration Levofloxacin 750 mg in 150 mls @ 100 mls/hr 04/17/19 06:00 04/17/19 06:17 Levaquin 750 Mg Premixed Ivpb - IVPB 100 mls/hr DAILY@0600 [facility] Administration Protocol Levothyroxine Sodium 50 mcg 04/17/19 07:00 04/17/19 06:17 Synthroid - PO 50 mcg DAILY@0700 [facility] Administration Pantoprazole Sodium 40 mg 04/17/19 10:00 04/17/19 10:59 Protonix - PO 40 mg DAILY [facility] Administration Home Medications Medication Instructions Recorded Levothyroxine [Synthroid -] 50 mcg PO DAILY 01/27/19 Acetaminophen [Tylenol] 650 mg PO DAILY PRN 04/16/19 Ascorbic Acid [Vitamin C] 1,000 mg PO DAILY 04/16/19 Cholecalciferol (Vitamin D3) 50,000 unit PO DAILY 04/16/19 [D3-50] Cyclobenzaprine HCl [Flexeril -] 5 mg PO HS 04/16/19 Gabapentin [Neurontin] 750 mg PO PRN 04/16/19 Omeprazole 40 mg PO DAILY 04/16/19 ASSESSMENT AND PLAN: 59 year old female with history of GERD, Hypothyroidism, Left Breast Ca s/p Szx/ RTx, presents with 10 day history of worsening nasal congestion, cough, SOB that is now associated with fever on presentation to ED with T 101.2. No CP/ sputum/hemoptysis. 1. Sepsis secondary to Acute Bronchitis +/- Sinusitis - sepsis resolved Flu neg, Strep neg Blood cx and throat Cx negative CXR - no acute consolidation Azithromycin and Clindamycin given in ED - will continue with Levofloxacin. Albuterol PRN. Nasonex and Mucinex for symptomatic relief 2. Hypothyroidism - Continue Synthroid. 3. GERD - continue PPI. DVT Px - Lovenox SQ Visit type - Emergency Visit Emergency Visit: Yes ED Registration Date: 04/16/19 Care time: The patient presented to the Emergency Department on the above date and was hospitalized for further evaluation of their emergent condition. - New Patient This patient is new to me today: No - Critical Care Critical Care patient: No - Discharge Referral Referred to [facility] Med [facility] No
--- NOTE | 2019-04-17 16:47 | DS ---
Physical Exam: SUBJECTIVE: Improvement in sore throat, odynophagia, and cough. Fever resolved. No sputum. No rash. No nausea/vomiting. OBJECTIVE: Afebrile. Hemodynamically Stable. Last Vital Signs Temp Pulse Resp BP Pulse Ox 98.6 F 82 18 108/66 97 04/17/19 08:05 04/17/19 08:05 04/17/19 08:05 04/17/19 08:05 04/16/19 21:00 HEENT - Atraumatic, Normocephalic. Pharyngeal erythema improved, no exudate Heart - S1, S2, RRR Lungs - clear to auscultation Abdomen - Soft, non-tender. Bowel Sounds normal. Extremities - no edema, no calf tenderness Neuro- AAO x 3. Tone/Power normal all extremities. Laboratory Results - last 24 hr 04/17/19 04/17/19 04/17/19 07:05 07:05 08:09 WBC 7.7 RBC 4.25 Hgb 12.5 Hct 37.0 MCV 87.1 MCH 29.4 MCHC 33.7 RDW 13.2 Plt Count 293 MPV 7.8 Absolute Neuts (auto) 5.1 Neutrophils % 66.3 Lymphocytes % 23.0 D Monocytes % 7.5 Eosinophils % 2.7 Basophils % 0.5 Nucleated RBC % 0 VBG pH 7.42 H POC VBG pCO2 42.1 POC VBG pO2 105 H VBG HCO3 26.8 VBG O2 Sat ([place]elia) 98.1 H VBG Base Excess 2.5 H Sodium 139 Potassium 3.8 Chloride 106 Carbon Dioxide 27 Anion Gap 6 L BUN 7.8 Creatinine 0.6 Est GFR (CKD-EPI)AfAm 114.82 Est GFR (CKD-EPI)NonAf 99.07 Random Glucose 117 H Calcium 8.4 L Phosphorus 2.9 Magnesium 2.3 Total Bilirubin 0.5 AST 14 L ALT 10 L Alkaline Phosphatase 86 Total Protein 6.4 Albumin 3.5 TSH 1.01 Current Medications Generic Name Dose Route Start Last Admin Trade Name Freq PRN Reason Stop Dose Admin Acetaminophen 650 mg 04/16/19 09:23 04/17/19 06:21 Tylenol - PO 650 mg Q6H PRN Administration FEVER Albuterol Sulfate 1 amp 04/16/19 09:23 Ventolin 0.083% Nebulizer Soln - NEB Q4H PRN SHORT OF BREATH/WHEEZING Cyclobenzaprine HCl 5 mg 04/16/19 22:00 04/16/19 22:08 Cyclobenzaprine Hcl PO 5 mg HS [facility] Administration Enoxaparin Sodium 40 mg 04/16/19 10:00 04/17/19 10:58 Lovenox - SQ 40 mg DAILY [facility] Administration Fluticasone Propionate 1 spray 04/16/19 16:11 04/17/19 11:01 Flonase - NS 1 spray BID [facility] Administration Guaifenesin 1 tablet 04/16/19 22:00 04/17/19 10:59 Mucinex Dm - PO 1 tablet BID [facility] Administration Levofloxacin 750 mg in 150 mls @ 100 mls/hr 04/17/19 06:00 04/17/19 06:17 Levaquin 750 Mg Premixed Ivpb - IVPB 100 mls/hr DAILY@0600 [facility] Administration Protocol Levothyroxine Sodium 50 mcg 04/17/19 07:00 04/17/19 06:17 Synthroid - PO 50 mcg DAILY@0700 [facility] Administration Pantoprazole Sodium 40 mg 04/17/19 10:00 04/17/19 10:59 Protonix - PO 40 mg DAILY [facility] Administration Date of Admission:04/16/19 Date of Discharge: 04/17/19 Minutes to complete discharge: 40 Discharge Summary Problems reviewed: Yes Reason For Visit: HYPOXEMIA/COUGH/SEPSIS Current Active Problems Cough (Acute) Hypoxemia (Acute) Sepsis (Acute) Hospital Course: 59 year old female with history of GERD, Hypothyroidism, Left Breast Ca s/p Sx/ RTx, presents with 10 day history of worsening nasal congestion, cough, SOB that is more recently associated with fever on presentation to ED with T 101.2. No CP/sputum/hemoptysis. 1. Sepsis secondary to Acute Bronchitis + Sinusitis - sepsis resolved Flu neg, Strep neg Blood cx and throat Cx negative CXR - no acute consolidation Azithromycin and Clindamycin given in ED - will continue with Levofloxacin for total of 7 days. Nasonex and Mucinex for symptomatic relief 2. Hypothyroidism - Continue Synthroid. 3. GERD - continue PPI. Patient has shown significant clinical improvement, has been afebrile, and is medically stable for discharge on antibiotic course with Flonase and Mucinex for symptomatic relief. - Instructions Diet, Activity, Other Instructions: You presented to the hospital with upper respiratory tract symptoms in addition to shortness of breath and cough. You were found to have acute bronchitis and sinusitis. Please complete 7 day antibiotic course as prescribed (5 additional days) with primary care follow up next week. Please continue flonase and mucinex for 5 additional days. Referrals: Robbie Brooks MD [Primary Care Provider] - - Home Medications Comprehensive Discharge Medication List: Ambulatory Orders Levothyroxine [Synthroid -] 50 mcg PO DAILY 01/27/19 Ascorbic Acid [Vitamin C] 1,000 mg PO DAILY 04/16/19 Cholecalciferol (Vitamin D3) [D3-50] 50,000 unit PO DAILY 04/16/19 Cyclobenzaprine HCl [Flexeril -] 5 mg PO HS 04/16/19 Gabapentin [Neurontin] 750 mg PO PRN 04/16/19 Omeprazole 40 mg PO DAILY 04/16/19 Fluticasone Prop 0.05% Nasal [Flonase -] 1 spray NS BID 5 Days #1 bottle Guaifenesin Dm [Mucinex Dm -] 1 tablet PO BID 4 Days #8 tab.er.12h 04/17/19 levoFLOXacin [Levaquin] 750 mg PO DAILY 5 Days #5 tab 04/17/19 This patient is new to me today: No Emergency Visit: Yes ED Registration Date: 04/16/19 Care time: The patient presented to the Emergency Department on the above date and was hospitalized for further evaluation of their emergent condition. Critical Care patient: No - Discharge Referral Referred to [facility] Med [facility] No
[2019-04-17 18:15] VITALS: BP 115/73; PULSE 79; TEMP 97.8
== END 2019-04-17 18:27 | disposition home or self-care (01) | DRG 144 ==
LOC: JER 02:58 → JERBED 06:49 → J5S 08:52
DX: J20.9 Acute bronchitis, unspecified (principal); R13.10 Dysphagia, unspecified; E03.9 Hypothyroidism, unspecified; R00.0 Tachycardia, unspecified; K21.9 Gastro-esophageal reflux disease without esophagitis; J32.9 Chronic sinusitis, unspecified; R09.02 Hypoxemia; Z85.3 Personal history of malignant neoplasm of breast
CPT/HCPCS: 36415; 71046-TC-FY; 80053; 81003; 82803; 83605; 83735; 83880; 84100; 84443; 84484; 85025; 85610; 85730; 87040; 87070; 87086; 87804; 87880; 93005; 93010; 97161-GP; 99285-25; J0131

== ENCOUNTER 2019-04-22 10:09 | Emergency (ER) | payer OTHER ==
[2019-04-22 10:16] VITALS: BP 116/71; PULSE 84; TEMP 97.9; BMI 27.7
--- NOTE | 2019-04-22 10:55 | PDOC ---
History of Present Illness - General Chief Complaint: Back Pain Stated Complaint: LOWER BACK PAIN Time Seen by Provider: 04/22/19 10:48 - History of Present Illness Initial Comments: 04/22/19 14:43 59 y/o F presenting with lower back pain of 3 days duration. Patient has had similiar pain in the past which was managed by PCP and with physical therapy. Past History - Past Medical History Allergies/Adverse Reactions: Allergies Allergy/AdvReac Type Severity Reaction Status Date / Time No Known Allergies Allergy Verified 04/22/19 10:15 Home Medications: Ambulatory Orders Levothyroxine [Synthroid -] 50 mcg PO DAILY 01/27/19 Ascorbic Acid [Vitamin C] 1,000 mg PO DAILY 04/16/19 Cholecalciferol (Vitamin D3) [D3-50] 50,000 unit PO DAILY 04/16/19 Cyclobenzaprine HCl [Flexeril -] 5 mg PO HS 04/16/19 Gabapentin [Neurontin] 300 mg PO TID PRN 04/16/19 Omeprazole 40 mg PO DAILY 04/16/19 Fluticasone Prop 0.05% Nasal [Flonase -] 1 spray NS BID 5 Days #1 bottle Guaifenesin Dm [Mucinex Dm -] 1 tablet PO BID 4 Days #8 tab.er.12h 04/17/19 levoFLOXacin [Levaquin] 750 mg PO DAILY 5 Days #5 tab 04/17/19 Anastrozole [Arimidex -] 1 mg PO DAILY 04/22/19 Cyclobenzaprine HCl [Flexeril -] 10 mg PO BID #20 tablet 04/22/19 Cancer: Yes (breast) COPD: No Thyroid Disease: Yes - Surgical History Orthopedic Surgery: Yes (left hand,) - Psycho Social/Smoking Cessation Hx Smoking History: Never smoked Have you smoked in the past 12 months: No Hx Alcohol Use: No Drug/Substance Use Hx: No Hx Substance Use Treatment: No Review of Systems - Review of Systems Constitutional: Yes: Chills, Fever HEENTM: No: Eye Pain, Blurred Vision Respiratory: Yes: Cough, Productive cough. No: Shortness of Breath Cardiac (ROS): No: Palpitations, Syncope ABD/GI: Yes: Other (abdominal pain) : No: Incontinence Musculoskeletal: Yes: Back Pain Integumentary: No: Bruising, Change in Color *Physical Exam - Vital Signs Last Vital Signs Temp Pulse Resp BP Pulse Ox 97.9 F 84 22 H 116/71 98 04/22/19 10:14 04/22/19 10:14 04/22/19 10:14 04/22/19 10:14 04/22/19 10:14 - Physical Exam Comments: 04/22/19 14:16 PE: GENERAL: Awake, alert, and fully oriented, in no acute distress HEAD: No signs of trauma, normocephalic, atraumatic EYES: PERRLA, EOMI, sclera anicteric, conjunctiva clear ENT: Auricles normal inspection, hearing grossly normal, nares patent, oropharynx clear without exudates. Moist mucosa NECK: Normal ROM, supple, no lymphadenopathy, JVD, or masses LUNGS: No distress, speaks full sentences, clear to auscultation bilaterally HEART: Regular rate and rhythm, normal S1 and S2, no murmurs, rubs or gallops, peripheral pulses normal and equal bilaterally. ABDOMEN: Soft, nontender, normoactive bowel sounds. No guarding, no rebound. No masses EXTREMITIES : Normal inspection, Normal range of motion, no edema. No clubbing or cyanosis. tenderness to palpation back of right buttock and posterior right thigh. BACK: tenderness to palpation(bony and paraspinal)of upper thoracic spine and lumbar spine. +straight leg raise on the right. NEUROLOGICAL: Cranial nerves II through XII grossly intact. Normal speech, , no focal sensorimotor deficits SKIN: Warm, Dry, normal turgor, no rashes or lesions noted Medical Decision Making - Medical Decision Making 04/22/19 14:15 EKG: normal sinus rhythm, normal ekg 04/22/19 14:18 Given Flexaril 5mg & toradol 30mg IV Lumbar Spine X-ray vertebral bodies intact, paraspinal tissues and si joints unremarkable, normal lordosis with no sign of fracture/subluxation/lytic changes no change since 03/12/2017 04/22/19 14:20 04/22/19 14:42 Pt. feeling better is able to ambulate at this time,rates pain as 5/10 improved from 10/10 this morning. discharge home with follow up with pain doctor and primary care. Discharge - Discharge Information Problems reviewed: Yes Clinical Impression/Diagnosis: Back pain Qualifiers: Back pain location: low back pain Chronicity: chronic Back pain laterality: unspecified Sciatica presence: with sciatica Sciatica laterality: sciatica of right side Qualified Code(s): M54.41 - Lumbago with sciatica, right side; G89.29 - Other chronic pain Condition: Improved Disposition: HOME - Admission No - Additional Discharge Information Prescriptions: Cyclobenzaprine HCl [Flexeril -] 10 mg PO BID #20 tablet - Follow up/Referral - Patient Discharge Instructions Patient Printed Discharge Instructions: Low Back Pain Additional Instructions: You were seen in the ER for back pain. You have been prescribed medication, take as prescibed you can get the following over the counter to use lidocaine patch for your back motrin over the counter use all medications as prescribed and follow label instructions. Return to the ER if You have new or worsening numbness in your legs. You have new or worsening weakness in your legs. (This could make it hard to stand up.) You lose control of your bladder or bowels. Watch closely for changes in your health, and be sure to contact your doctor You have a fever, lose weight, or don't feel well. You do not get better as expected. Print Language: TAJIK - Post Discharge Activity
--- NOTE | 2019-04-22 11:46 | PDOC ---
Attending Attestation - Resident Resident Name: Beto Llanos - ED Attending Attestation I have performed the following: I have examined & evaluated the patient, The case was reviewed & discussed with the resident, I agree w/resident's findings & plan, Exceptions are as noted - HPI HPI: 04/22/19 11:47 59y F hx of recently pna, fibromyalgia, chronic back pain, hypothyroidism, breast ca sp radiation/resection rpesents with3 days of atraumatic lower back pain and neck pain. This pain is similar in nature to her chronic pain that she had a few months ago. Pain is worse with walking, improved with rest. Pain is making it more difciuty to walk. denies any urinary/bowel incontinence, fever/ chills, numbness/tingling/weakness. cough improved, comleted last dose of abx today - Physicial Exam PE: 04/22/19 12:54 exam: general: no acute distress pulm: cta b/l card: rrr no mrg abd: soft nontender back: no focal midline tenderness, mild difuse tenderness of soft tissue of the upper back and lower back neuro; moving all 4 exrtrmitieis spontaneously and symmetrically with equal strenght, sensation intact and symmetric b/l - Medical Decision Making 04/22/19 12:57 Suspect her pain is muscular due to her history of breast cancer will obtain x- ray of her lumbar spine Will give the patient Toradol and Flexeril will reassess 04/22/19 14:42 Patient was reassessed patient is feeling improved he is ambulatory. Will discharge the patient with supportive care with PMD follow-up Return precautions discussed Heart Score/ECG Review - ECG Impressions Comment:: 04/22/19 14:12 Twelve-lead EKG was performed and reviewed by me. There is normal sinus rhythm with a normal rate. Rate of 72 The axis is normal. The intervals are normal. There is normal R wave progression There are no ST or T wave abnormalities. Impression: Normal twelve-lead EKG
[2019-04-22] MEDS ORDERED: KETOROLAC TROMETHAMINE 30 MG/1 ML VIAL IVPUSH ONE (11:54)
[2019-04-22] MEDS ORDERED: CYCLOBENZAPRINE HCL 5 MG TABLET PO ONE (11:55)
[2019-04-22] MEDS ORDERED: KETOROLAC TROMETHAMINE 30 MG/1 ML VIAL IM ONE (12:43)
[2019-04-22] MEDS ORDERED: KETOROLAC TROMETHAMINE 15 MG/ML VIAL ONE (12:46)
[2019-04-22] MEDS ORDERED: CYCLOBENZAPRINE HCL 10 MG TABLET (FP) ONE (12:46)
--- NOTE | 2019-04-22 14:20 | EKG ---
Test Reason : Blood Pressure : / mmHG Vent. Rate : 072 BPM Atrial Rate : 072 BPM P-R Int : 160 ms QRS Dur : 078 ms QT Int : 378 ms P-R-T Axes : 070 035 027 degrees QTc Int : 413 ms POOR DATA QUALITY, INTERPRETATION MAY BE ADVERSELY AFFECTED NORMAL SINUS RHYTHM NONSPECIFIC T WAVE ABNORMALITY WHEN COMPARED WITH ECG OF 16-APR-2019 03:23, VENT. RATE HAS DECREASED BY 36 BPM Confirmed by DONG SCHAEFER MD ([id number]) on 04/22/2019 2:20:09 PM Referred By: Confirmed By:DONG SCHAEFER MD
== END 2019-04-22 15:05 | disposition home or self-care (01) ==
LOC: JER 10:09
PROC: 3E0233Z Introduction of Anti-inflammatory into Muscle, Percutaneous Approach (ICD-10-PCS; principal; 2019-04-22)
DX: M54.41 Lumbago with sciatica, right side (principal); G89.29 Other chronic pain; E07.9 Disorder of thyroid, unspecified; Z85.3 Personal history of malignant neoplasm of breast
CPT/HCPCS: 72100-TC-FY; 93005; 93010; 96372; 99283-25

== ENCOUNTER 2022-10-25 12:54 | Emergency (ER) | payer OTHER ==
[2022-10-25 13:18] VITALS: BP 126/76; PULSE 74; RESP 20; TEMP 98.1; BMI 33.5
[2022-10-25] MEDS ORDERED: FAMOTIDINE 20 MG/50 ML IVPB 20 MG/50 ML MG IVPB ONE ×2 (14:22→15:10)
[2022-10-25] MEDS ORDERED: MAG HYDROX/AL HYDROX/SIMETH 30 ML UNIT-DOSE CUP PO ONE (14:22)
[2022-10-25] MEDS ORDERED: ACETAMINOPHEN 1000 MG/100 ML BAG IVPB ONE (14:22)
[2022-10-25] MEDS ORDERED: MAG HYDROX/AL HYDROX/SIMETH 30 ML UNIT-DOSE CUP ONE (14:30)
[2022-10-25] MEDS ORDERED: ACETAMINOPHEN INJECTION 100 ML IVPB ONE (14:30)
[2022-10-25 14:38] LABS: BASO % 0.7 % (0-2.0); EOS % 4.5 % (0-4.5); HEMATOCRIT 39.6 % (32.4-45.2); LYMPH % 33.5 % (8-40); MCH 29.9 pg (25.7-33.7); MCHC 35.3 g/dl (32.0-36.0); MEAN CELL VOLUME 84.7 fl (80-96); MEAN PLT VOLUME 7.8 fl (7.5-11.1); NEUT % 54.3 % (42.8-82.8); PLATELET COUNT 346 10^3/uL (134-434); RBC 4.68 M/mm3 (3.60-5.2); RDW 13.8 % (11.6-15.6); WHITE BLOOD COUNT 6.9 K/mm3 (4.0-10.0)
[2022-10-25 14:41] LABS: EPI CELLS 3 /uL (0-25.1); HYALINE CASTS 0 /uL (0-3.1); URINE APPEARANCE CLEAR; URINE BACTERIA 1 /uL (0-1359); URINE BILIRUBIN NEGATIVE (NEGATIVE); URINE COLOR YELLOW; URINE GLUCOSE (UA) NEGATIVE (NEGATIVE); URINE KETONE NEGATIVE (NEGATIVE); URINE LEUK ESTERASE NEGATIVE (NEGATIVE); URINE NITRITE NEGATIVE (NEGATIVE); URINE PROTEIN NEGATIVE (NEGATIVE); URINE RBC 42 /uL (0-23.9); URINE UROBILINOGEN 0.2 mg/dL (0.2-1.0); URINE WBC 1 /uL (0-25.8)
[2022-10-25 14:47] LABS: INR 1.03 (0.83-1.09)
[2022-10-25 14:50] LABS: ACTIVATED PTT 32.7 SECONDS (25.2-36.5)
[2022-10-25 15:05] LABS: POTASSIUM 4.3 mmol/L (3.5-5.1)
[2022-10-25 15:08] LABS: BLOOD UREA NITROGEN 9.6 mg/dL (7-18)
[2022-10-25 15:11] LABS: CREATININE 0.7 mg/dL (0.55-1.3)
[2022-10-25 15:13] LABS: BILIRUBIN,TOTAL 0.4 mg/dL (0.2-1); TOT PROT 7.3 g/dl (6.4-8.2)
== END 2022-10-25 16:57 | disposition home or self-care (01) ==
LOC: JER 12:54
PROC: 3E033GC Introduction of Other Therapeutic Substance into Peripheral Vein, Percutaneous Approach (ICD-10-PCS; principal; 2022-10-25)
PROC: 3E033NZ Introduction of Analgesics, Hypnotics, Sedatives into Peripheral Vein, Percutaneous Approach (ICD-10-PCS; 2022-10-25)
DX: R05.9 Cough, unspecified (principal); R07.9 Chest pain, unspecified; R51.9 Headache, unspecified; R07.0 Pain in throat; Z20.822 Contact with and (suspected) exposure to COVID-19
CPT/HCPCS: 0241U-QW; 36415; 71045-TC-FY; 80053; 81003; 84484; 85025; 85610; 85730; 87070; 87086; 87651; 93005; 93010; 99285-25

== ENCOUNTER 2023-03-27 17:52 | Observation (INO) | payer OTHER ==
[2023-03-27 18:10] VITALS: BMI 34.7
[2023-03-27] MEDS ORDERED: ACETAMINOPHEN 1000 MG/100 ML BAG IVPB ONE (20:32)
[2023-03-27] MEDS ORDERED: KETOROLAC TROMETHAMINE 15 MG/ML VIAL IVPUSH ONE (20:32)
[2023-03-27] MEDS ORDERED: KETOROLAC TROMETHAMINE 15 MG/ML VIAL ONE (20:49)
[2023-03-27] MEDS ORDERED: ACETAMINOPHEN INJECTION 100 ML IVPB ONE (20:49)
[2023-03-27 21:05] LABS: BASO % 0.7 % (0-2.0); EOS % 0.9 % (0-4.5); HEMATOCRIT 39.9 % (32.4-45.2); HEMOGLOBIN 13.7 GM/dL (10.7-15.3); MCH 29.3 pg (25.7-33.7); MCHC 34.3 g/dl (32.0-36.0); MEAN CELL VOLUME 85.2 fl (80-96); MEAN PLT VOLUME 7.6 fl (7.5-11.1); MONO % 6.5 % (3.8-10.2); NEUT % 60.9 % (42.8-82.8); PLATELET COUNT 348 10^3/uL (134-434); RBC 4.68 M/mm3 (3.60-5.2); RDW 13.7 % (11.6-15.6)
[2023-03-27 21:11] LABS: INR 1.03 (0.83-1.09); PROTHROMBIN TIME (PATIENT) 11.9 SEC (9.7-13.0)
[2023-03-27 21:22] LABS: POTASSIUM 4.1 mmol/L (3.5-5.1)
[2023-03-27 21:24] LABS: CALCIUM 9.2 mg/dL (8.5-10.1)
[2023-03-27 21:25] LABS: ALBUMIN 3.6 g/dl (3.4-5.0); BLOOD UREA NITROGEN 11.1 mg/dL (7-18)
[2023-03-27 21:28] LABS: CREATININE 0.7 mg/dL (0.55-1.3)
[2023-03-27 21:29] LABS: BILIRUBIN,TOTAL 0.5 mg/dL (0.2-1); TOT PROT 6.6 g/dl (6.4-8.2)
[2023-03-27 21:41] LABS: ERYTHROCYTE SEDIMENTATION RATE 11 mm/hr (0-30)
[2023-03-27] MEDS ORDERED: morphine CARPU-JECT 2 MG/1 ML DISP.SYRIN IVPUSH ONE (22:34)
[2023-03-28] MEDS ORDERED: LIDOCAINE 4% PATCH TP ONE ×2 (00:16)
[2023-03-28] MEDS ORDERED: morphine SO4 SUSTAINED ACTING 30 MG TABLET.SA PO SCH (01:15)
[2023-03-28] MEDS ORDERED: morphine SULFATE IMMEDIATE RELEASE 30 MG TAB ONE (01:52)
[2023-03-28] MEDS ORDERED: morphine SULFATE IMMEDIATE RELEASE 30 MG TAB PO ONE (04:56)
[2023-03-28] MEDS ORDERED: ONDANSETRON 4 MG/2 ML VIAL IVPUSH ONE ×2 (05:07→08:48)
[2023-03-28] MEDS: LEVOTHYROXINE NA 75 MCG TABLET (FP) PO SCH (06:05)
[2023-03-28] MEDS ORDERED: traMADol HCL 50 MG TABLET PO PRN (07:40)
[2023-03-28] MEDS ORDERED: oxyCODONE HCL 5 MG TABLET PO PRN (07:40)
[2023-03-28] MEDS ORDERED: ONDANSETRON 4 MG/2 ML VIAL IVPUSH PRN (08:14)
[2023-03-28] MEDS ORDERED: methylPREDNISolone 4 MG TABLET PO ONE (09:00)
[2023-03-28 10:11] LABS: BASO % 0.5 % (0-2.0); EOS % 0.3 % (0-4.5); HEMATOCRIT 41.1 % (32.4-45.2); HEMOGLOBIN 13.7 GM/dL (10.7-15.3); LYMPH % 15.6 % (8-40); MCH 28.8 pg (25.7-33.7); MCHC 33.3 g/dl (32.0-36.0); MEAN CELL VOLUME 86.5 fl (80-96); MEAN PLT VOLUME 7.9 fl (7.5-11.1); MONO % 5.2 % (3.8-10.2); NEUT % 78.4 % (42.8-82.8); PLATELET COUNT 348 10^3/uL (134-434); RBC 4.75 M/mm3 (3.60-5.2); RDW 13.5 % (11.6-15.6)
[2023-03-28 10:33] LABS: CALCIUM 8.6 mg/dL (8.5-10.1)
[2023-03-28 10:34] LABS: ALBUMIN 3.8 g/dl (3.4-5.0); BLOOD UREA NITROGEN 13.9 mg/dL (7-18); MAGNESIUM 2.2 mg/dL (1.8-2.4)
[2023-03-28 10:37] LABS: BILIRUBIN,TOTAL 0.6 mg/dL (0.2-1); CREATININE 0.7 mg/dL (0.55-1.3)
[2023-03-28 10:38] LABS: TOT PROT 6.9 g/dl (6.4-8.2)
[2023-03-28] MEDS: LIDOCAINE 4% PATCH TP SCH (11:03)
[2023-03-28] MEDS: POLYETHYLENE GLYCOL (HEALTHYLAX) 3350 17 GM PACKET PO SCH (11:04)
[2023-03-28] MEDS: DOCUSATE SODIUM 100 MG CAPSULE (FP) PO SCH ×2 (11:04→21:40)
[2023-03-28] MEDS: IBUPROFEN 600 MG TABLET (FP) PO SCH ×4 (11:04→23:27)
[2023-03-28] MEDS: ACETAMINOPHEN 325 MG TABLET (FP) PO SCH ×3 (11:04→21:40)
[2023-03-28] MEDS: ENOXAPARIN NA (PORCINE) 40 MG/0.4 ML DISP.SYRIN SQ SCH (11:04)
[2023-03-28] MEDS ORDERED: METOCLOPRAMIDE HCL INJECTION 10 MG/2 ML VIAL IVPUSH PRN (11:43)
[2023-03-28] MEDS ORDERED: LIDOCAINE PATCH REMOVAL MC ONE (12:00)
[2023-03-28] MEDS: CYCLOBENZAPRINE HCL 5 MG TABLET PO SCH ×2 (15:31→21:40)
[2023-03-28 16:13] VITALS: RESP 18
[2023-03-28] MEDS ORDERED: LIDOCAINE PATCH REMOVAL MC SCH (22:00)
[2023-03-29] MEDS: IBUPROFEN 600 MG TABLET (FP) PO SCH ×2 (05:30→14:17)
[2023-03-29] MEDS: ACETAMINOPHEN 325 MG TABLET (FP) PO SCH ×2 (05:31→14:18)
[2023-03-29] MEDS: CYCLOBENZAPRINE HCL 5 MG TABLET PO SCH ×2 (05:31→14:18)
[2023-03-29] MEDS: LEVOTHYROXINE NA 75 MCG TABLET (FP) PO SCH (06:01)
[2023-03-29 08:59] LABS: BASO % 0.9 % (0-2.0); EOS % 0.1 % (0-4.5); HEMATOCRIT 39.6 % (32.4-45.2); HEMOGLOBIN 13.4 GM/dL (10.7-15.3); LYMPH % 20.7 % (8-40); MCH 29.3 pg (25.7-33.7); MCHC 33.9 g/dl (32.0-36.0); MEAN CELL VOLUME 86.5 fl (80-96); MEAN PLT VOLUME 7.6 fl (7.5-11.1); MONO % 4.5 % (3.8-10.2); NEUT % 73.8 % (42.8-82.8); PLATELET COUNT 354 10^3/uL (134-434); RBC 4.58 M/mm3 (3.60-5.2); RDW 13.7 % (11.6-15.6); WHITE BLOOD COUNT 10.3 K/mm3 (4.0-10.0)
[2023-03-29 09:19] LABS: POTASSIUM 4.1 mmol/L (3.5-5.1)
[2023-03-29 09:21] LABS: CALCIUM 8.9 mg/dL (8.5-10.1); MAGNESIUM 2.3 mg/dL (1.8-2.4)
[2023-03-29 09:22] LABS: BLOOD UREA NITROGEN 16.7 mg/dL (7-18)
[2023-03-29 09:25] LABS: CREATININE 0.9 mg/dL (0.55-1.3); PHOSPHOROUS 4.2 mg/dL (2.5-4.9)
[2023-03-29] MEDS: LIDOCAINE 4% PATCH TP SCH (10:39)
[2023-03-29] MEDS: ENOXAPARIN NA (PORCINE) 40 MG/0.4 ML DISP.SYRIN SQ SCH (10:39)
[2023-03-29] MEDS: POLYETHYLENE GLYCOL (HEALTHYLAX) 3350 17 GM PACKET PO SCH (10:40)
[2023-03-29] MEDS: DOCUSATE SODIUM 100 MG CAPSULE (FP) PO SCH (10:40)
[2023-03-29] MEDS ORDERED: methylPREDNISolone 4 MG TABLET PO ONE (12:00)
[2023-03-29 16:18] VITALS: BP 147/62; PULSE 74; TEMP 97.9
== END 2023-03-29 16:00 | disposition home or self-care (01) ==
LOC: JER 17:52 → JERBED 22:57 → J5S 03-28 04:04
PROVIDERS: ADMIT Internal Medicine; ATTEND Internal Medicine
PROC: 3E033NZ Introduction of Analgesics, Hypnotics, Sedatives into Peripheral Vein, Percutaneous Approach (ICD-10-PCS; principal; 2023-03-27)
PROC: 3E023GC Introduction of Other Therapeutic Substance into Muscle, Percutaneous Approach (ICD-10-PCS; 2023-03-27)
PROC: 3E0333Z Introduction of Anti-inflammatory into Peripheral Vein, Percutaneous Approach (ICD-10-PCS; 2023-03-27)
PROC: 3E033GC Introduction of Other Therapeutic Substance into Peripheral Vein, Percutaneous Approach (ICD-10-PCS; 2023-03-27)
DX: M54.50 Low back pain, unspecified (principal); K59.00 Constipation, unspecified; E78.5 Hyperlipidemia, unspecified; E03.9 Hypothyroidism, unspecified; G89.29 Other chronic pain; Z85.3 Personal history of malignant neoplasm of breast
CPT/HCPCS: 36415; 72157-TC; 72158-TC; 80048; 80053; 83735; 84100; 85025; 85610; 85651; 85730; 86140; 86850; 86900; 86901; 93005; 93010; 96365; 96368; 96372; 96375; 96376; 97116-GP; 97162-GP; 99285-25; G0378